=== PATIENT | female | born 1940 | race Caucasian/White ===

== ENCOUNTER 2019-08-20 16:15 | Inpatient (IN) | payer MEDICARE ==
[2019-08-20 17:11] LABS: ALT (SGPT) 9 U/L (8-55); AST (SGOT) 14 U/L (5-34); Albumin 3.9 g/dL (3.4-4.8); Alkaline Phosphatase 69 U/L (40-110); Anion Gap 11 mmol/L (10-20); BUN (Urea Nitrogen) 20 mg/dL (9.8-20.1); Bilirubin, Total 0.5 mg/dL (0.2-1.2); Calc. Creatinine Clearance 0 mL/min (70-130); Calcium 8.9 mg/dL (7.8-10.44); Carbon Dioxide 28 mmol/L (23-31); Chloride 104 mmol/L (98-107); Estimated GFR-MDRD 59; Globulin 3.3 g/dL (2.4-3.5); Glucose 83 mg/dL (83-110); Protein, Total 7.2 g/dL (6.0-8.3); Sodium 139 mmol/L (136-145)
[2019-08-20 18:09] LABS: #Eosinphils 0.4 thou/uL (0.0-0.7); #Lymphocytes 1.4 thou/uL (1.20-3.40); #Monocytes 0.7 thou/uL (0.11-0.59); #Neutrophils 4.9 thou/uL (1.40-6.50); %Basophils 0.4 % (0.0-1.0); %Eosinophils 5.3 % (0.0-10.0); %Lymphocytes 18.5 % (21.0-51.0); %Monocytes 9.1 % (0.0-10.0); %Neutrophils 66.8 % (42.0-75.0); Hemoglobin 6.6 g/dL (12.0-16.0); Mean Corpuscular HGB CONC 29.9 g/dL (32.0-36.0); Mean Corpuscular Hemoglobin 19.3 pg (27.0-31.0); Mean Corpuscular Volume 64.6 fL (78.0-98.0); Mean Platelet Volume 6.9 fL (7.4-10.4); Platelet Count 232 thou/uL (130-400); RBC Distribution Width 24.7 % (11.5-14.5); White Blood Cell (WBC) Count 7.4 thou/uL (4.8-10.8)
[2019-08-20 18:14] LABS: PTT 27.3 SEC (22.9-36.1); Prothrombin Time 13.7 SEC (12.0-14.7)
[2019-08-20 18:38] LABS: Anisocytosis MODERATE=16-30 cells (100X) (0-5/hpf); Elliptocytes SLIGHT = 2-5 cells (100X) (0-1/hpf); Hypochromia SLIGHT = 6-15 cells (100X) (0-5/hpf); MDiff Complete? YES; Microcytosis SLIGHT = 6-15 cells (100X) (0-5/hpf); Ovalocytes SLIGHT = 2-5 cells (100X) (0-1/hpf); Platelet Morphology Comment Appears Adequate; Poikilocytosis SLIGHT = 6-15 cells (100X) (0-5/hpf); Polychromasia SLIGHT = 2-3 cells (100X) (0-2/hpf); Reflex for Review?? YES; Schistocytes SLIGHT = 2-5 cells (100X) (0-1/hpf); Tear Drops SLIGHT = 2-5 cells (100X) (0-1/hpf)
[2019-08-20] MEDS ORDERED: Pantoprazole 80 MG, Admixture Fee 1 EACH in Sodium Chloride 0.9% 100 ML IVPB SCH (18:45)
[2019-08-20] MEDS ORDERED: Acetaminophen 650 MG Suppository PR PRN (19:48)
[2019-08-20] MEDS ORDERED: Acetaminophen 325 MG TAB PO PRN (19:48)
[2019-08-20] MEDS ORDERED: Ondansetron PF 4 MG/2 ML Vial IVP PRN (19:48)
[2019-08-20] MEDS ORDERED: Ondansetron ODT 4 MG TAB PO PRN (19:48)
[2019-08-20 19:50] LABS: Iron 15 ug/dL (50-170); Iron Binding Capacity, Total 443 mcg/dL (265-497)
[2019-08-20] MEDS ORDERED: Famotidine/PF 20 mg/2ml Vial SLOW IVP SCH (21:00)
[2019-08-20 23:04] VITALS: BMI 31.8
--- NOTE | 2019-08-21 00:26 | HP ---
TIME OF ASSESSMENT: 1800 REASON FOR ADMISSION: Severe anemia. HISTORY OF PRESENT ILLNESS: Ms. Hester is a very pleasant 78-year-old woman, who looks very well for her age and was prompted to come in by her primary care physician after undergoing routine laboratory studies as workup for cataract surgery. The patient apparently was noted to have a low hemoglobin of 5.5 and advised to go to the ER. She was initially seen at [facility] and underwent a blood transfusion with 1 unit of packed red blood cells. The patient states she has never had transfusion before in her life. On arrival here, laboratory studies were repeated and she was noted to have a hemoglobin of 6.6 and is now receiving a second unit. The patient states that she has been feeling fatigued for the last several months, approximately 5 to 6 months. She spoke to her primary care physician about this and says she was told to exercise more in order to improve her stamina. She states she tends to feel extremely tired with exertion and is usually able to walk well on her own, except with long distances, such as going grocery shopping, she uses a motorized cart. Denies feeling any lightheadedness or dizziness. No chest pain or shortness of breath. She has not experienced any black stools or bright red blood in her stools. No hematuria. No abdominal pain. No nausea, vomiting, or hematemesis. She has otherwise felt very well and without complaints. She has never undergone any endoscopic procedure. She recalls her hemoglobin being 14 in the last year. A baseline chest x-ray was done in the emergency department and showed cardiomegaly with bilateral vascular congestion. No confluent pneumonia. This was done at [facility], where she was initially seen. She had a slightly elevated BNP of 507.9. She was therefore treated with Lasix. Since arriving to the emergency department here, she has been given 80 mg of IV Protonix. PAST MEDICAL HISTORY: 1. Restless legs syndrome. 2. Hypothyroidism. 3. Hypertension. 4. Anxiety. PAST SURGICAL HISTORY: 1. Appendectomy. 2. Tubal ligation. FAMILY HISTORY: Family history of ovarian cancer in mom and small cell lung cancer in dad. SOCIAL HISTORY: Patient lives with her son. She is fully independent and mobilizes without any assistive devices. Denies any tobacco use, alcohol consumption, or illicit drug use. ALLERGIES: NO KNOWN DRUG ALLERGIES. CURRENT MEDICATIONS: 1. Atenolol. 2. Celexa. 3. Levothyroxine. 4. Furosemide. PHYSICAL EXAMINATION: GENERAL: Patient appears well developed, well nourished, is in no acute distress. She is resting comfortably on a stretcher. VITAL SIGNS: Temperature 99.2, pulse 68, respirations 18, blood pressure 148/70 , and O2 saturation 100% on room air. HEENT: Normocephalic and atraumatic. Pupils are equal, round, and reactive to light. Sclerae without icterus. Oropharynx is clear. NECK: Supple. LUNGS: Clear to auscultation bilaterally without wheezes, rales, or rhonchi. CARDIAC: Regular rate and rhythm without audible murmurs, rubs, or gallops. ABDOMEN: Soft, nontender, and nondistended. Normoactive bowel sounds present. EXTREMITIES: No lower leg swelling or edema. NEUROLOGIC: Alert and oriented x3. SKIN: Without rash or jaundice. INVESTIGATIONS: As mentioned above in HPI. IMPRESSION AND PLAN: Ms. Hester is a very pleasant 78-year-old woman, who has been referred due to severe symptomatic anemia of unspecified etiology. Patient has had significant fatigue for the last several months, but states that today she is not feeling any worse than she has been. She denies any chest pain. No lightheadedness or dizziness. No signs or symptoms of bleeding. She has never had a colonoscopy done. She is not on any blood thinners. Not known to have any history of iron-deficiency anemia and a year ago her hemoglobin was normal at 14. She has received one of two units of packed red blood cells. We will plan to give her an additional third unit as per discussion with Dr. Calvert. He also advised iron infusion. We have requested iron studies to be added to the initial blood tests done prior to the transfusions. Per Dr. Calvert, patient would benefit from GI workup, but this should be done as an outpatient. Further investigations as per Day Team. We will continue to check H and H q.6 hours and continue Protonix 40 mg twice daily. Patient is feeling well at this time and without any complaints. We will resume home medications once verified. No evidence of overload at this present time and she was treated with Lasix 20 mg at [facility]. We will continue with her usual daily dose of Lasix. Code status, full. Surrogate decision maker is her son, Praveen Hester. Case discussed with Dr. Calvert who agrees upon care as described above. === ADDENDUM: patient seen/examined independently 78 year old female who was referred to ER for abnormal labs showing severe anemia with microcytosis. complains of progressive symptoms of fatigue and decreased exercise tolerance for months. denies melena. FOBT negative in ER. denies abdominal pain, PUD, or any other acute blood loss. reports hemoglobin 14 one year ago. review of EMR shows MCV normocytic 2 years ago. denies prior colonoscopy. denies changes in weight. plan: admit as observation await 3 units prbc transfusion. transfuse IV ferrlecit 125 mg. will attempt to obtain anemia profile from pre- transfusion blood draw. start empiric po PPI recommend patient obtain outpatient GI follow-up, who verbalizes understanding. Dr. Chaz Calvert, supervising hospitalist discussed with LEEANNE Job ID: [id number] MTDD
[2019-08-21] MEDS: Levothyroxine Sodium 75 MCG TAB PO SCH (05:24)
[2019-08-21 06:21] LABS: #Eosinphils 0.4 thou/uL (0.0-0.7); #Lymphocytes 1.4 thou/uL (1.20-3.40); #Monocytes 0.7 thou/uL (0.11-0.59); #Neutrophils 4.9 thou/uL (1.40-6.50); %Basophils 0.6 % (0.0-1.0); %Eosinophils 5.1 % (0.0-10.0); %Lymphocytes 19.3 % (21.0-51.0); %Monocytes 9.5 % (0.0-10.0); %Neutrophils 65.5 % (42.0-75.0); Hemoglobin 7.8 g/dL (12.0-16.0); Mean Corpuscular HGB CONC 31.2 g/dL (32.0-36.0); Mean Corpuscular Hemoglobin 20.8 pg (27.0-31.0); Mean Corpuscular Volume 66.5 fL (78.0-98.0); Mean Platelet Volume 7.8 fL (7.4-10.4); Platelet Count 181 thou/uL (130-400); Red Blood Cell (RBC) Count 3.78 mill/uL (4.20-5.40); White Blood Cell (WBC) Count 7.4 thou/uL (4.8-10.8)
[2019-08-21 06:25] LABS: Anion Gap 16 mmol/L (10-20); BUN (Urea Nitrogen) 19 mg/dL (9.8-20.1); Calc. Creatinine Clearance 67 mL/min (70-130); Calcium 8.6 mg/dL (7.8-10.44); Carbon Dioxide 21 mmol/L (23-31); Chloride 104 mmol/L (98-107); Estimated GFR-MDRD 65; Glucose 97 mg/dL (83-110); Potassium 4.6 mmol/L (3.5-5.1); Sodium 136 mmol/L (136-145)
[2019-08-21] MEDS: Furosemide 20 MG TAB PO SCH (08:44)
[2019-08-21] MEDS: Pantoprazole 40 MG VIAL IVP SCH ×2 (08:45→20:08)
[2019-08-21] MEDS ORDERED: Iron Sucrose Complex 200 MG in Sodium Chloride 0.9% 250 ML 250 ML IVPB SCH (10:30)
[2019-08-21] MEDS ORDERED: Iron, Sodium Ferric Gluconate 250 MG in Sodium Chloride 0.9% 100 ML IVPB SCH (10:45)
[2019-08-21] MEDS ORDERED: GoLYTELY 4,000 ml Bottle PO SCH ×2 (12:00→18:00)
--- NOTE | 2019-08-21 15:39 | CON ---
DATE OF CONSULTATION: CONSULTING PHYSICIAN: Lauren Condon MD. REASON FOR CONSULTATION: Iron-deficiency anemia. HISTORY OF PRESENT ILLNESS: Ms. Hester is an 78-year-old female, who presented to an outside emergency room in [place] as one of her physicians doing an evaluation prior to cataract surgery and found her to have a hemoglobin of 5.5. She was advised to go to the emergency room in [place]. There, she was transfused 1 unit of blood and transferred here. She notes that she has had no overt melena, hematochezia, or hematemesis. She takes Advil PM sometimes every once or twice a week. She has had not had any previous screening colonoscopy. She denies any hematochezia, hematemesis, or melena. She has become quite fatigued, not being able to do very much, and getting short of breath and having some dyspnea on exertion. She recently saw her wig maker secondary to edema in her legs. It is unclear what evaluation was done, but she states that she was found to have a little bit of cardiomegaly. Here, her hemoglobin after blood and some IV iron has come up to 7.8. On admission, it was 5.9 with an MCV of 61, platelet count of 305. Her previous hemoglobin at [facility] was 14.8 on 07/05/2017. The patient's comprehensive metabolic profile was normal. BNP was 507. Iron was 15 and ferritin was less than 2two. PAST MEDICAL HISTORY: 1. Hypertension. 2. Restless legs. 3. Hypothyroidism. 4. Anxiety. PAST SURGICAL HISTORY: 1. Appendectomy. 2. Tubal ligation. FAMILY HISTORY: Ovarian cancer. Her father had lung cancer, he is a smoker. SOCIAL HISTORY: She lives with her son. She is fully independent. ALLERGIES: NONE KNOWN. MEDICATIONS AT HOME: 1. Celexa. 2. Atenolol. 3. Levothyroxine. 4. Furosemide. PHYSICAL EXAMINATION: GENERAL: The patient is alert and oriented to person, place, and time. She is sitting up in the side of the bed. She is pale. VITAL SIGNS: Temperature is 98, pulse 81, and blood pressure is 132/81. LUNGS: Clear. HEART: Regular without murmurs. ABDOMEN: Soft and nontender with no palpable hepatosplenomegaly. EXTREMITIES: No clubbing, cyanosis, or edema. LABORATORY STUDIES: As per HPI. ASSESSMENT: Iron-deficiency anemia. She is not a Mediterranean. She does take some nonsteroidal anti-inflammatory drugs at times, but not a lot. She has not had any previous screening colonoscopies. This is most likely related to chronic gastrointestinal blood loss. RECOMMENDATIONS: In light of severeness of her anemia, I would recommend upper and lower endoscopies tomorrow morning to further delineate the cause and risks going forward. Risks, benefits, and possible complications of endoscopy including perforation, bleeding, reaction to medication, and aspiration were discussed with the patient and she wished to proceed. Job ID: [id number]
--- NOTE | 2019-08-21 17:24 | PDOC.HOSPP ---
- Subjective Encounter Date: 08/21/19 Encounter Time: 10:00 Subjective: Pt seen for followup re: symptomatic anemia. States she feels better today. - Objective Vital Signs & Weight: Vital Signs (12 hours) Temp Pulse Resp BP BP BP BP 08/21/19 16:39 97.2 F L 74 18 125/74 08/21/19 11:11 98.6 F 76 16 126/75 98/67 96/59 L 08/21/19 07:00 98.6 F 71 16 132/81 Pulse Ox 08/21/19 16:39 94 L 08/21/19 11:11 96 08/21/19 07:00 96 Weight Weight 174 lb 3.2 oz I&O: 08/20/19 08/21/19 08/22/19 06:59 06:59 06:59 Intake Total 500 Balance 500 Result Diagrams: 08/21/19 05:36 08/21/19 05:36 Additional Labs: Labs and MARs reviewed by ma Hospitalist ROS - Review of Systems Cardiovascular: denies: chest pain, palpitations, orthopnea, paroxysmal noc. dyspnea, edema, light headedness Gastrointestinal: denies: nausea, vomiting, abdominal pain, diarrhea, constipation, melena, hematochezia - Medication Medications: Active Medications Generic Name Dose Route Start Last Admin Trade Name Freq PRN Reason Stop Dose Admin Furosemide 20 mg 08/21/19 09:00 08/21/19 08:44 Lasix PO 20 mg DAILY TOMAS Administration Levothyroxine Sodium 75 mcg 08/21/19 06:00 08/21/19 05:24 Synthroid PO 75 mcg 0600 TOMAS Administration Pantoprazole Sodium 40 mg 08/21/19 09:00 08/21/19 08:45 Protonix IVP 40 mg Q12HR TOMAS Administration Polyethylene Glycol/Electrolytes 4,000 ml 08/21/19 18:00 08/21/19 16:24 Golytely PO 08/21/19 20:00 4,000 ml 1800 TOMAS Administration Sodium Chloride 10 ml 08/20/19 19:48 08/21/19 08:46 Flush - Normal Saline IVF 10 ml Q12HR PRN Administration Saline Flush - Exam General Appearance: NAD Eye: anicteric sclera ENT: moist mucosa Neck: supple Heart: RRR Respiratory: CTAB Gastrointestinal: soft, non-tender Extremities: no cyanosis Skin: no lesions Psychiatric: normal affect, normal behavior Hosp A/P (1) Symptomatic anemia Code(s): D64.9 - ANEMIA, UNSPECIFIED Status: Acute (2) HTN (hypertension) Code(s): I10 - ESSENTIAL (PRIMARY) HYPERTENSION Status: Chronic (3) RLS (restless legs syndrome) Status: Chronic (4) Hypothyroidism Code(s): E03.9 - HYPOTHYROIDISM, UNSPECIFIED Status: Chronic - Plan out of bed/ambulate Hemoglobin improved to 7.8 after pRBC transfusion. IV iron infusion for iron deficiency. EGD/colonoscopy tomorrow. Monitor vital signs, titrate antihypertensives as needed. Continue synthroid. TSH and free T4 were normal. Check Vit B12/folate levels tomorrow.
[2019-08-21] MEDS: Atenolol 50 MG TAB PO SCH (20:08)
[2019-08-21] MEDS: Citalopram 20 MG TAB PO SCH (20:08)
[2019-08-22] MEDS: Levothyroxine Sodium 75 MCG TAB PO SCH (05:17)
[2019-08-22 05:58] LABS: #Basophils 0.1 thou/uL (0.0-0.2); #Eosinphils 0.5 thou/uL (0.0-0.7); #Lymphocytes 1.6 thou/uL (1.20-3.40); #Monocytes 0.9 thou/uL (0.11-0.59); #Neutrophils 5.5 thou/uL (1.40-6.50); %Basophils 0.6 % (0.0-1.0); %Eosinophils 5.6 % (0.0-10.0); %Lymphocytes 18.8 % (21.0-51.0); %Monocytes 10.1 % (0.0-10.0); Hemoglobin 8.3 g/dL (12.0-16.0); Mean Corpuscular HGB CONC 29.7 g/dL (32.0-36.0); Mean Corpuscular Volume 67.2 fL (78.0-98.0); Mean Platelet Volume 8.1 fL (7.4-10.4); Platelet Count 268 thou/uL (130-400); RBC Distribution Width 26.4 % (11.5-14.5); Red Blood Cell (RBC) Count 4.13 mill/uL (4.20-5.40); White Blood Cell (WBC) Count 8.4 thou/uL (4.8-10.8)
[2019-08-22 06:17] LABS: Anion Gap 11 mmol/L (10-20); BUN (Urea Nitrogen) 14 mg/dL (9.8-20.1); Calc. Creatinine Clearance 58 mL/min (70-130); Calcium 9.1 mg/dL (7.8-10.44); Carbon Dioxide 31 mmol/L (23-31); Chloride 102 mmol/L (98-107); Estimated GFR-MDRD 56; Glucose 107 mg/dL (83-110); Potassium 3.7 mmol/L (3.5-5.1); Sodium 140 mmol/L (136-145)
[2019-08-22] MEDS: Pantoprazole 40 MG VIAL IVP SCH (08:02)
[2019-08-22] MEDS: Furosemide 20 MG TAB PO SCH (08:03)
[2019-08-22] MEDS ORDERED: Lidocaine 1% PF 5 ML VIAL ONE (10:34)
[2019-08-22] MEDS ORDERED: PROPOFOL 200 MG/20 ML VIAL ONE (10:34)
--- NOTE | 2019-08-22 16:31 | OP ---
DATE OF PROCEDURE: 08/22/2019 PROCEDURES PERFORMED: Esophagogastroduodenoscopy with biopsies and colonoscopy. PREOPERATIVE DIAGNOSIS: Iron deficiency anemia. DESCRIPTION OF PROCEDURE: Informed consent was obtained from the patient. She was sedated with total intravenous anesthesia. The bite block was placed and the endoscope was advanced easily to the second portion of the duodenum and retroflexion was performed in the stomach. The esophagus was normal. The GE junction was normal. The stomach had a 5 cm hiatal hernia without obvious erosions associated with this. The stomach had mild erythematous gastritis in the antrum. Biopsies were obtained to rule out H. pylori. Retroflexed views in the stomach were otherwise unremarkable. The pylorus and first and second portions of the duodenum were normal. Biopsies were taken from the second portion of the duodenum to rule out celiac disease. The patient was turned around. Rectal exam was performed and was normal. The colonoscope was advanced to the terminal ileum without difficulty. Mucosa of the terminal ileum was normal. The ileocecal valve and appendiceal orifice were clearly identified. The preparation quality was good. There was severe diverticulosis of the sigmoid and descending colon. The remainder of the colonic mucosa was normal. Retroflexed views in the rectum revealed [id number] internal hemorrhoids. IMPRESSION: 1. A 5 cm hiatal hernia. 2. Mild erythematous gastritis. Biopsies taken to rule out Helicobacter pylori. 3. Otherwise normal esophagogastroduodenoscopy. Duodenal biopsies were taken to rule out celiac disease. 4. Severe sigmoid and descending diverticulosis. 5. [id number] internal hemorrhoids. 6. Otherwise normal colonoscopy to the terminal ileum. RECOMMENDATIONS: 1. Await histopathology. 2. Follow trend of the hemoglobin. 3. Advance her diet. 4. Follow up with Dr. Segura. Next step will be capsule endoscopy to evaluate for small bowel source of GI bleeding. Job ID: [id number]
--- NOTE | 2019-08-22 18:18 | PDOC.HOSPP ---
- Subjective Encounter Date: 08/22/19 Encounter Time: 10:00 Subjective: Pt seen for followup re: symptomatic anemia. Feels well, no complaints today. - Objective Vital Signs & Weight: Vital Signs (12 hours) Temp Pulse Resp BP BP Pulse Ox 08/22/19 14:50 98.1 F 68 18 113/68 99 08/22/19 07:48 98.1 F 62 20 143/71 H 95 Weight Weight 174 lb 3.2 oz I&O: 08/21/19 08/22/19 08/23/19 06:59 06:59 06:59 Intake Total 500 3910 360 Balance 500 3910 360 Result Diagrams: 08/22/19 05:25 08/22/19 05:25 Additional Labs: Labs and MARs reviewed by oh Hospitalist ROS - Review of Systems Cardiovascular: denies: chest pain, palpitations, orthopnea, paroxysmal noc. dyspnea, edema, light headedness Gastrointestinal: denies: nausea, vomiting, abdominal pain, diarrhea, constipation, melena, hematochezia Skin: denies: rash, lesions - Medication Medications: Active Medications Generic Name Dose Route Start Last Admin Trade Name Freq PRN Reason Stop Dose Admin Atenolol 50 mg 08/21/19 21:00 08/21/19 20:08 Tenormin PO 50 mg HS TOMAS Administration Citalopram Hydrobromide 20 mg 08/21/19 21:00 08/21/19 20:08 Celexa PO 20 mg HS TOMAS Administration Furosemide 20 mg 08/21/19 09:00 08/22/19 08:03 Lasix PO Not Given DAILY TOMAS Levothyroxine Sodium 75 mcg 08/21/19 06:00 08/22/19 05:17 Synthroid PO 75 mcg 0600 TOMAS Administration Sodium Chloride 10 ml 08/20/19 19:48 08/22/19 08:03 Flush - Normal Saline IVF 10 ml Q12HR PRN Administration Saline Flush - Exam General Appearance: awake alert General - other findings: obese Eye: anicteric sclera ENT: moist mucosa Neck: supple, no JVD Heart: RRR, no rubs Respiratory: CTAB Gastrointestinal: soft, non-tender Neurological: no weakness Psychiatric: normal affect, normal behavior Hosp A/P (1) Symptomatic anemia Code(s): D64.9 - ANEMIA, UNSPECIFIED Status: Acute (2) HTN (hypertension) Code(s): I10 - ESSENTIAL (PRIMARY) HYPERTENSION Status: Chronic (3) RLS (restless legs syndrome) Status: Chronic (4) Hypothyroidism Code(s): E03.9 - HYPOTHYROIDISM, UNSPECIFIED Status: Chronic - Plan out of bed/ambulate Hemoglobin improved to 8.3 today. EGD/colonoscopy today. Monitor vital signs, titrate antihypertensives as needed. Continue synthroid. Start ferrous sulfate.
[2019-08-22] MEDS: Atenolol 50 MG TAB PO SCH (20:25)
[2019-08-22] MEDS: Citalopram 20 MG TAB PO SCH (20:26)
[2019-08-23 04:43] VITALS: TEMP 98.6
[2019-08-23] MEDS: Levothyroxine Sodium 75 MCG TAB PO SCH (05:18)
[2019-08-23 05:41] LABS: #Eosinphils 0.5 thou/uL (0.0-0.7); #Lymphocytes 1.2 thou/uL (1.20-3.40); #Monocytes 0.8 thou/uL (0.11-0.59); %Basophils 0.5 % (0.0-1.0); %Eosinophils 5.3 % (0.0-10.0); %Lymphocytes 13.9 % (21.0-51.0); %Monocytes 9.3 % (0.0-10.0); %Neutrophils 71.1 % (42.0-75.0); Hemoglobin 7.6 g/dL (12.0-16.0); Mean Corpuscular HGB CONC 29.9 g/dL (32.0-36.0); Mean Corpuscular Hemoglobin 20.2 pg (27.0-31.0); Mean Corpuscular Volume 67.4 fL (78.0-98.0); Platelet Count 215 thou/uL (130-400); RBC Distribution Width 27.2 % (11.5-14.5); Red Blood Cell (RBC) Count 3.76 mill/uL (4.20-5.40); White Blood Cell (WBC) Count 8.5 thou/uL (4.8-10.8)
[2019-08-23 05:46] LABS: Anion Gap 10 mmol/L (10-20); BUN (Urea Nitrogen) 14 mg/dL (9.8-20.1); Calc. Creatinine Clearance 60 mL/min (70-130); Calcium 8.6 mg/dL (7.8-10.44); Carbon Dioxide 28 mmol/L (23-31); Chloride 105 mmol/L (98-107); Estimated GFR-MDRD 57; Glucose 98 mg/dL (83-110); Potassium 3.7 mmol/L (3.5-5.1); Sodium 139 mmol/L (136-145)
[2019-08-23 07:59] VITALS: BP 136/79
[2019-08-23] MEDS ORDERED: Ferrous Sulfate 325 MG TAB PO SCH (08:00)
[2019-08-23] MEDS: Furosemide 20 MG TAB PO SCH (08:02)
--- NOTE | 2019-08-24 05:47 | PQF ---
[employer] Quilting Machine Operator Crystal Reports Winform ViewerMADHU RECINOS MARCELINA BRINK [id number] [facility] [id number] CLINICAL DOCUMENTATION CLARIFICATION FORM: POST DISCHARGE Addendum to original discharge summary date: ____ Late entry note date: __ DATE: 08/24/2019 ATTN:MARCELINA BRINK Please exercise your independent, professional judgment in responding to the clarification form. Clinical indicators are provided on the bottom of this form for your review Please check appropriate box(s): [ ] Anemia due to Internal Hemorrhoids [ ] Anemia due to Gastritis [ ] Anemia due Diverticulosis [ ] Anemia due NSAID drug [x ] Anemia due to Unknown etiology [ ] Other diagnosis [ ] Unable to determine In addition, please specify: Present on Admission (POA): [ x ] Yes [ ] No [ ] Unable to determine For continuity of documentation, please document condition throughout progress notes and discharge summary. Thank You. CLINICAL INDICATORS - SIGNS / SYMPTOMS / LABS HGB 6.6 on 08/20 and 8.3 on 08/22 - Documented in Laboratory HCT on 22.0 on 08/20 and 25.4 on 08/23 - Documented in Laboratory She does take some NSAID but not a lot - Documented in Consult note on 08/21 by Epi Akhtar This is most likely Chronic GIB - Documented in Consult note on 08/21 by Epi Akhtar Iron Deficiency anemia - Documented in OP note RISK FACTORS Severe sigmoid diverticulosis - Documented in OP note Internal Hemorrhoids - Documented in OP note Mild Erythematous gastritis - Documented in OP note TREATMENTS: Blood transfusion EGD with Biopsy and Colonoscopy Ferrous sulfate - Medication report [employer] Quilting Machine Operator Crystal Reports Winform Viewer(This form is maintained as a part of the permanent medical record) 2014 [employer]. All Rights Reserved Renan [email or web address] [not provided] MTDD
--- NOTE | 2019-08-24 09:22 | DIS ---
DATE OF ADMISSION: 08/22/2019 DATE OF DISCHARGE: 08/23/2019 PRIMARY CARE PROVIDER: Cindi Bishop MD. DISCHARGE DIAGNOSES: 1. Symptomatic anemia. 2. Iron deficiency. CONDITION OF PATIENT ON THE DAY OF DISCHARGE: Stable. I assessed Ms. Hester on the day of discharge. She denies any chest pain or shortness of breath. Vital signs are stable. S1 and S2 are heard, regular. Lungs are clear to auscultation bilaterally. CONSULTATIONS DURING THIS HOSPITALIZATION: Gastroenterology, Dr. Segura. DISCHARGE MEDICATIONS: 1. Atenolol 50 mg at bedtime. 2. Celexa 20 mg at bedtime. 3. Lasix 20 mg daily. 4. Synthroid 75 mcg daily. 5. Ferrous sulfate 325 mg daily. 6. Protonix 40 mg daily. 7. MiraLAX 17 g daily. HOSPITAL COURSE: Ms. Hester is a pleasant 78-year-old lady, who was admitted to [facility] on 08/20/2019, for symptomatic anemia. She received packed RBC transfusion. She also received iron infusion. She was seen by Gastroenterology Service. Her iron level was low at 15. TIBC was towards the higher end of normal at 443. Ferritin was less than 2. Vitamin B12 and folate levels were normal. On 08/22/2019, she underwent bidirectional scope studies. She was found to have a 5 cm hiatal hernia, mild erythematous gastritis, biopsies taken to rule out H pylori. Duodenal biopsies were also taken to rule out celiac disease. She had severe sigmoid and descending diverticulosis, moderate to large internal hemorrhoids. She is advised to follow up with Gastroenterology Service. Next step may be capsule endoscopy to evaluate for small bowel source of GI bleeding. She was initially transferred to [facility] after presenting at [facility]. There, she had a chest x-ray that showed cardiomegaly with bilateral vascular congestion. She was treated with furosemide. Pharmacy at [facility] queried whether the patient has an active diagnosis of congestive heart failure, in which case, they recommended substituting either carvedilol or Toprol-XL for atenolol. The patient will follow up with her paper pattern folder, Dr. Truong to clarify the issue. On the day of discharge, she has normal chem-7, normal white count, hemoglobin 7.6, and normal platelet count. Many thanks for allowing me to participate in your patient's care. Please feel free to contact me with any questions or concerns. DIET: Heart healthy. ACTIVITY: Ad jay. DISCHARGE DESTINATION: Home. TIME SPENT: Total amount of time spent coordinating this discharge: 20 minutes. Job ID: [id number] MTDD
== END 2019-08-23 11:48 | disposition home or self-care (01) | DRG 812 ==
LOC: ERS 16:15 → T4-A 22:01 → OBSVTOIN 08-22 09:34
PROVIDERS: ADMIT Internal Medicine; ATTEND Internal Medicine
PROC: 30233N1 Transfusion of Nonautologous Red Blood Cells into Peripheral Vein, Percutaneous Approach (ICD-10-PCS; principal; 2019-08-23)
PROC: 0DB98ZX Excision of Duodenum, Via Natural or Artificial Opening Endoscopic, Diagnostic (ICD-10-PCS; 2019-08-23)
DX: D50.9 Iron deficiency anemia, unspecified (principal); E03.9 Hypothyroidism, unspecified; I10 Essential (primary) hypertension; F41.9 Anxiety disorder, unspecified; G25.81 Restless legs syndrome; K44.9 Diaphragmatic hernia without obstruction or gangrene; K57.90 Diverticulosis of intestine, part unspecified, without perforation or abscess without bleeding; K64.8 Other hemorrhoids; K29.70 Gastritis, unspecified, without bleeding; Z90.49 Acquired absence of other specified parts of digestive tract; Z98.51 Tubal ligation status; Z79.899 Other long term (current) drug therapy
CPT/HCPCS: 36415; 80048; 82607; 82728; 82746; 83540; 83550; 85025; 86850; 86900; 86901; 88305; 88312; 88342; 96365; 96366; C9113; J2001; J2704; J2916; J3490; P9016

== ENCOUNTER 2021-10-24 10:41 | Inpatient (IN) | payer OTHER, MEDICARE ==
[2021-10-24 11:32] LABS: Mean Corpuscular HGB CONC 31.1 g/dL (32.0-36.0); Mean Corpuscular Hemoglobin 28.1 pg (27.0-31.0); Mean Corpuscular Volume 90.2 fL (78.0-98.0); Mean Platelet Volume 9.2 fL (7.4-10.4); Platelet Count 204 thou/uL (130-400); RBC Distribution Width 24.7 % (11.5-14.5); Red Blood Cell (RBC) Count 4.63 mill/uL (4.20-5.40); White Blood Cell (WBC) Count 10.2 thou/uL (4.8-10.8)
[2021-10-24 11:33] LABS: #Basophils 0.1 thou/uL (0.0-0.2); #Eosinphils 0.3 thou/uL (0.0-0.7); #Monocytes 0.9 thou/uL (0.11-0.59); #Neutrophils 7.9 thou/uL (1.40-6.50); %Basophils 0.9 % (0.0-1.0); %Eosinophils 2.7 % (0.0-10.0); %Lymphocytes 10.2 % (21.0-51.0); %Monocytes 9.2 % (0.0-10.0)
[2021-10-24 11:48] LABS: ALT (SGPT) 17 U/L (8-55); AST (SGOT) 30 U/L (5-34); Albumin 3.6 g/dL (3.4-4.8); Alkaline Phosphatase 54 U/L (40-110); Anion Gap 17 mmol/L (10-20); BUN (Urea Nitrogen) 29 mg/dL (9.8-20.1); Bilirubin, Total 0.9 mg/dL (0.2-1.2); Calc. Creatinine Clearance 0 mL/min (70-130); Calcium 9.5 mg/dL (7.8-10.44); Carbon Dioxide 24 mmol/L (23-31); Chloride 105 mmol/L (98-107); Globulin 3.2 g/dL (2.4-3.5); Glucose 93 mg/dL (83-110); Potassium 3.6 mmol/L (3.5-5.1); Protein, Total 6.8 g/dL (5.8-8.1); Sodium 142 mmol/L (136-145)
[2021-10-24 11:55] LABS: Anisocytosis MODERATE=16-30 cells (100X) (0-5/hpf); MDiff Complete? YES; Ovalocytes SLIGHT = 2-5 cells (100X) (0-1/hpf); Platelet Morphology Comment Appears Adequate; Polychromasia SLIGHT = 2-3 cells (100X) (0-2/hpf)
[2021-10-24] MEDS ORDERED: Morphine 4 MG/ML VIAL ONE (11:58)
[2021-10-24] MEDS ORDERED: hydrALAZINE 20 MG/ML VIAL SLOW IVP PRN (13:45)
[2021-10-24] MEDS ORDERED: Promethazine HCl 25 MG/ML VIAL IM PRN (13:45)
[2021-10-24] MEDS ORDERED: Ondansetron PF 4 MG/2 ML Vial IVP PRN (13:45)
[2021-10-24] MEDS ORDERED: traMADol HCl 50 MG TAB PO PRN (13:49)
[2021-10-24] MEDS ORDERED: Morphine 4 MG/ML VIAL SLOW IVP PRN (13:51)
[2021-10-24] MEDS ORDERED: Ibuprofen 200 MG TAB PO PRN (14:16)
[2021-10-24 14:44] LABS: Bilirubin Negative (Negative); Blood, Urine 2+ (Negative); Clarity Turbid (Clear); Glucose, Urine (Dipstick) Normal (Negative); Ketone, Urine 40 mg/dL (Negative); Leukocyte 25 Leu/uL (Negative); Nitrite Negative (Negative); Protein, Urine (Dipstick) 20 mg/dL (Neg-Trace); RBC/HPF 21-50 HPF (0-3); Specific Gravity, Urine 1.032 (1.002-1.036); pH, Urine 5.5 (5.0-9.0)
[2021-10-24 14:45] LABS: Bacteria/HPF 3+ HPF (None Seen)
[2021-10-24] MEDS ORDERED: Potassium Chloride 20 MEQ in Lactated Ringer's 1,000 ML IV SCH (18:15)
[2021-10-24 18:28] VITALS: BMI 29.2
[2021-10-24] MEDS: Acetaminophen 500 MG TAB PO SCH ×2 (19:22→20:39)
[2021-10-24] MEDS: traMADol HCl 50 MG TAB PO SCH (19:23)
[2021-10-24 20:03] LABS: SARS-CoV-2 NAA Rapid Test Not Detected (NotDetected)
[2021-10-24] MEDS: Famotidine/PF 20 mg/2ml Vial SLOW IVP SCH (20:37)
[2021-10-24] MEDS: Citalopram 20 MG TAB PO SCH (20:39)
[2021-10-24] MEDS: Senokot S 8.6-50 MG TAB PO SCH (20:39)
[2021-10-24] MEDS: Atenolol 50 MG TAB PO SCH (20:50)
[2021-10-25] MEDS: traMADol HCl 50 MG TAB PO SCH ×4 (00:01→18:36)
[2021-10-25] MEDS: Acetaminophen 500 MG TAB PO SCH ×4 (03:00→21:00)
[2021-10-25 05:19] LABS: INR-International Normal Ratio 1.1; PTT 31.4 sec (22.9-36.1); Prothrombin Time 14.2 sec (12.0-14.7)
[2021-10-25 05:22] LABS: Anion Gap 13 mmol/L (10-20); BUN (Urea Nitrogen) 38 mg/dL (9.8-20.1); Calc. Creatinine Clearance 49 mL/min (70-130); Calcium 8.6 mg/dL (7.8-10.44); Carbon Dioxide 25 mmol/L (23-31); Chloride 103 mmol/L (98-107); Glucose 69 mg/dL (83-110); Magnesium 2.3 mg/dL (1.6-2.6); Potassium 4.4 mmol/L (3.5-5.1); Sodium 137 mmol/L (136-145)
[2021-10-25 06:14] LABS: #Basophils 0.1 thou/uL (0.0-0.2); #Eosinphils 0.4 thou/uL (0.0-0.7); #Lymphocytes 1.2 thou/uL (1.20-3.40); #Monocytes 0.8 thou/uL (0.11-0.59); #Neutrophils 5.6 thou/uL (1.40-6.50); %Basophils 1.2 % (0.0-1.0); %Eosinophils 4.7 % (0.0-10.0); %Lymphocytes 14.4 % (21.0-51.0); %Monocytes 9.8 % (0.0-10.0); Band 1 % (5-11); Eosinophils 2 % (0-10); Hemoglobin 11.6 g/dL (12.0-16.0); Lymphocytes 17 % (21-51); MDiff Complete? YES; Mean Corpuscular HGB CONC 31.7 g/dL (32.0-36.0); Mean Corpuscular Hemoglobin 28.9 pg (27.0-31.0); Mean Corpuscular Volume 91.3 fL (78.0-98.0); Mean Platelet Volume 9.4 fL (7.4-10.4); Monocytes 7 % (0-10); Neutrophil 73 % (42-75); Platelet Count 171 thou/uL (130-400); Platelet Morphology Comment Appears Adequate; RBC Distribution Width 24.5 % (11.5-14.5); RBC Morphology Normal; Red Blood Cell (RBC) Count 4.01 mill/uL (4.20-5.40)
[2021-10-25] MEDS: Levothyroxine Sodium 75 MCG TAB PO SCH (06:23)
[2021-10-25 06:58] LABS: CK (CPK) 228 U/L (29-168); Phosphorus 4.7 mg/dL (2.3-4.7)
[2021-10-25] MEDS ORDERED: Fentanyl 250 MCG/5 ML VIAL ONE ×2 (07:04→09:28)
[2021-10-25] MEDS ORDERED: Bupivacaine HCl 0.5%/Epinephrine 1:200,000/PF 30 ml Vial ONE (07:45)
[2021-10-25] MEDS ORDERED: Lidocaine 1% PF 5 ML VIAL ONE (07:45)
[2021-10-25] MEDS ORDERED: PROPOFOL 200 MG/20 ML VIAL ONE (07:45)
[2021-10-25] MEDS ORDERED: Rocuronium Bromide 10 MG/ML (10ML VIAL) ONE (07:45)
[2021-10-25] MEDS ORDERED: ceFAZolin 2 GM/DEX 5% 100 ML BAG ONE ×2 (08:02)
[2021-10-25] MEDS ORDERED: SUGAMMADEX SODIUM 200 MG/2 ML VIAL ONE (08:54)
[2021-10-25] MEDS ORDERED: Acetaminophen 325 MG TAB PO PRN (09:03)
[2021-10-25] MEDS ORDERED: HYDROcodone/Acetaminophen 5/325 mg Tablet PO PRN ×2 (09:05)
[2021-10-25] MEDS ORDERED: TETANUS AND DIPHTHERIA TOX/PF 0.5 ML DISP.SYRIN IM SCH (09:15)
[2021-10-25] MEDS ORDERED: Communication Order-Pharmacy FS PRN (09:15)
[2021-10-25] MEDS: Polyethylene Glycol 3350 17 GM Packet PO SCH (11:19)
[2021-10-25] MEDS: Folic Acid 1 MG TAB PO SCH (11:19)
[2021-10-25] MEDS: Senokot S 8.6-50 MG TAB PO SCH ×2 (11:21→21:00)
[2021-10-25] MEDS: Ferrous Sulfate 325 MG TAB PO SCH (11:21)
[2021-10-25] MEDS: Famotidine/PF 20 mg/2ml Vial SLOW IVP SCH (11:22)
[2021-10-25] MEDS ORDERED: hydrALAZINE 25 MG TAB PO SCH (15:00)
[2021-10-25] MEDS: hydrALAZINE 25 MG TAB PO SCH ×2 (15:03→21:03)
[2021-10-25] MEDS ORDERED: CEFAZOLIN 2 GM, Admixture Fee 1 EACH in Sodium Chloride 0.9% 100 ML IVPB SCH (16:00)
[2021-10-25] MEDS: Citalopram 20 MG TAB PO SCH (21:00)
[2021-10-25] MEDS: Doxycycline 100 MG CAP PO SCH (21:00)
[2021-10-25] MEDS ORDERED: Transdermal Patch Removal TOP SCH (21:00)
[2021-10-25] MEDS: Aspirin 81 mg Enteric Coated Tablet PO SCH (21:00)
[2021-10-25] MEDS: Atenolol 50 MG TAB PO SCH (21:03)
[2021-10-26] MEDS: traMADol HCl 50 MG TAB PO SCH ×4 (00:03→18:30)
[2021-10-26] MEDS: Acetaminophen 500 MG TAB PO SCH ×4 (02:25→20:53)
[2021-10-26] MEDS: Levothyroxine Sodium 75 MCG TAB PO SCH (05:27)
[2021-10-26 05:51] LABS: Anion Gap 12 mmol/L (10-20); BUN (Urea Nitrogen) 28 mg/dL (9.8-20.1); Calc. Creatinine Clearance 59 mL/min (70-130); Calcium 8.2 mg/dL (7.8-10.44); Carbon Dioxide 26 mmol/L (23-31); Chloride 104 mmol/L (98-107); Glucose 99 mg/dL (83-110); Magnesium 2.1 mg/dL (1.6-2.6); Phosphorus 3.1 mg/dL (2.3-4.7); Potassium 3.9 mmol/L (3.5-5.1); Sodium 138 mmol/L (136-145)
[2021-10-26 06:13] LABS: Hemoglobin 10.7 g/dL (12.0-16.0); Mean Corpuscular HGB CONC 30.4 g/dL (32.0-36.0); Mean Corpuscular Hemoglobin 28.5 pg (27.0-31.0); Mean Corpuscular Volume 93.6 fL (78.0-98.0); Mean Platelet Volume 9.6 fL (7.4-10.4); Platelet Count 158 thou/uL (130-400); RBC Distribution Width 24.3 % (11.5-14.5); Red Blood Cell (RBC) Count 3.76 mill/uL (4.20-5.40); White Blood Cell (WBC) Count 8.4 thou/uL (4.8-10.8)
[2021-10-26 06:14] LABS: #Eosinphils 0.2 thou/uL (0.0-0.7); #Lymphocytes 1.1 thou/uL (1.20-3.40); #Monocytes 0.8 thou/uL (0.11-0.59); #Neutrophils 6.3 thou/uL (1.40-6.50); %Basophils 0.2 % (0.0-1.0); %Eosinophils 2.4 % (0.0-10.0); %Lymphocytes 12.6 % (21.0-51.0); %Neutrophils 74.8 % (42.0-75.0); Anisocytosis SLIGHT = 6-15 cells (100X) (0-5/hpf); MDiff Complete? YES
[2021-10-26] MEDS ORDERED: Polyethylene Glycol 3350 17 GM Packet PO SCH (09:00)
[2021-10-26] MEDS ORDERED: Aspirin 81 mg Enteric Coated Tablet PO SCH (09:00)
[2021-10-26] MEDS: Polyethylene Glycol 3350 17 GM Packet PO SCH (09:03)
[2021-10-26] MEDS: Furosemide 20 MG TAB PO SCH (09:04)
[2021-10-26] MEDS: Aspirin 81 mg Enteric Coated Tablet PO SCH ×2 (09:04→20:53)
[2021-10-26] MEDS: Ferrous Sulfate 325 MG TAB PO SCH (09:04)
[2021-10-26] MEDS: Folic Acid 1 MG TAB PO SCH (09:04)
[2021-10-26] MEDS: Senokot S 8.6-50 MG TAB PO SCH (09:04)
[2021-10-26] MEDS: hydrALAZINE 25 MG TAB PO SCH ×2 (09:04→15:40)
[2021-10-26] MEDS: Docusate 100 MG CAP PO SCH ×2 (09:43→20:53)
[2021-10-26] MEDS: Doxycycline 100 MG CAP PO SCH ×2 (09:43→20:52)
[2021-10-26] MEDS: Senokot 8.6 MG TAB PO SCH ×2 (09:43→20:52)
[2021-10-26] MEDS ORDERED: traMADol HCl 50 MG TAB PO PRN (13:36)
[2021-10-26] MEDS: Ibuprofen 600 MG TAB PO SCH (18:30)
[2021-10-26] MEDS: Citalopram 20 MG TAB PO SCH (20:52)
[2021-10-26] MEDS: Gabapentin 300 MG CAP PO SCH (20:52)
[2021-10-26] MEDS: Atenolol 50 MG TAB PO SCH (21:35)
[2021-10-27] MEDS: traMADol HCl 50 MG TAB PO SCH ×4 (00:01→18:16)
[2021-10-27] MEDS: Acetaminophen 500 MG TAB PO SCH ×4 (04:28→21:18)
[2021-10-27] MEDS: Levothyroxine Sodium 75 MCG TAB PO SCH (05:47)
[2021-10-27] MEDS: Ibuprofen 600 MG TAB PO SCH ×4 (05:47→18:16)
[2021-10-27] MEDS: Senokot 8.6 MG TAB PO SCH ×2 (08:45→21:17)
[2021-10-27] MEDS: Gabapentin 300 MG CAP PO SCH ×2 (08:46→21:17)
[2021-10-27] MEDS: Furosemide 20 MG TAB PO SCH (08:46)
[2021-10-27] MEDS: Folic Acid 1 MG TAB PO SCH (08:46)
[2021-10-27] MEDS: Doxycycline 100 MG CAP PO SCH (08:46)
[2021-10-27] MEDS: Saccharomyces boulardii 250 MG CAP PO SCH (08:46)
[2021-10-27] MEDS: Aspirin 81 mg Enteric Coated Tablet PO SCH ×2 (08:49→21:16)
[2021-10-27] MEDS: Ferrous Sulfate 325 MG TAB PO SCH (08:49)
[2021-10-27] MEDS: Docusate 100 MG CAP PO SCH ×2 (08:50→21:16)
[2021-10-27] MEDS: Polyethylene Glycol 3350 17 GM Packet PO SCH (12:32)
[2021-10-27] MEDS: Atenolol 50 MG TAB PO SCH (21:16)
[2021-10-27] MEDS: Citalopram 20 MG TAB PO SCH (21:18)
[2021-10-27] MEDS: Sulfameth/Trimethoprim DS 800-160mg TAB PO SCH (21:19)
[2021-10-28] MEDS: traMADol HCl 50 MG TAB PO SCH ×4 (01:12→17:10)
[2021-10-28] MEDS: Ibuprofen 600 MG TAB PO SCH ×4 (01:13→17:11)
[2021-10-28] MEDS: Acetaminophen 500 MG TAB PO SCH ×3 (03:12→17:11)
[2021-10-28] MEDS: Levothyroxine Sodium 75 MCG TAB PO SCH (06:36)
[2021-10-28] MEDS: Gabapentin 300 MG CAP PO SCH (08:28)
[2021-10-28] MEDS: Aspirin 81 mg Enteric Coated Tablet PO SCH (08:29)
[2021-10-28] MEDS: Saccharomyces boulardii 250 MG CAP PO SCH (08:29)
[2021-10-28] MEDS: Docusate 100 MG CAP PO SCH (08:29)
[2021-10-28] MEDS: Ferrous Sulfate 325 MG TAB PO SCH (08:29)
[2021-10-28] MEDS: Furosemide 20 MG TAB PO SCH (08:29)
[2021-10-28] MEDS: Polyethylene Glycol 3350 17 GM Packet PO SCH (08:29)
[2021-10-28] MEDS: Senokot 8.6 MG TAB PO SCH (08:29)
[2021-10-28] MEDS: Folic Acid 1 MG TAB PO SCH (08:30)
[2021-10-28] MEDS: Sulfameth/Trimethoprim DS 800-160mg TAB PO SCH (08:30)
[2021-10-28 16:09] VITALS: BP 133/85; TEMP 97.8
== END 2021-10-28 20:00 | DRG 481 ==
LOC: ERS 10:41 → SURG B 13:25
PROVIDERS: ADMIT Surgery; ATTEND Surgery
PROC: 0QH734Z Insertion of Internal Fixation Device into Left Upper Femur, Percutaneous Approach (ICD-10-PCS; principal; 2021-10-25)
DX: S72.092A Other fracture of head and neck of left femur, initial encounter for closed fracture (principal); N39.0 Urinary tract infection, site not specified; Z20.822 Contact with and (suspected) exposure to COVID-19; F41.9 Anxiety disorder, unspecified; G25.81 Restless legs syndrome; E03.9 Hypothyroidism, unspecified; D50.9 Iron deficiency anemia, unspecified; I10 Essential (primary) hypertension; F17.210 Nicotine dependence, cigarettes, uncomplicated; I48.91 Unspecified atrial fibrillation; M19.90 Unspecified osteoarthritis, unspecified site; G89.29 Other chronic pain; M54.50 Low back pain, unspecified; M79.7 Fibromyalgia; M25.562 Pain in left knee; W01.0XXA Fall on same level from slipping, tripping and stumbling without subsequent striking against object, initial encounter; Y92.008 Other place in unspecified non-institutional (private) residence as the place of occurrence of the external cause; Z87.19 Personal history of other diseases of the digestive system; Z90.49 Acquired absence of other specified parts of digestive tract; Z98.51 Tubal ligation status; Z87.11 Personal history of peptic ulcer disease; Z86.79 Personal history of other diseases of the circulatory system; Z79.899 Other long term (current) drug therapy; Z79.890 Hormone replacement therapy
CPT/HCPCS: 36415; 51702; 71045; 72131; 72170; 72192; 76000; 80048; 80053; 81003; 81015; 82550; 83605; 83735; 84100; 85025; 85610; 85730; 86850; 86900; 86901; 87077; 87086; 87186; 96374; C1713; C1769; G0390; J2270; J2704; J3010; J3480; J7120; S0028; U0002

== ENCOUNTER 2021-11-04 10:40 | Inpatient (IN) | payer MEDICARE ==
[2021-11-03 13:35] VITALS: BMI 30.6
[2021-11-04] MEDS ORDERED: Fentanyl 250 MCG/5 ML VIAL ONE ×3 (11:31→14:50)
[2021-11-04 11:36] LABS: Anion Gap 12 mmol/L (10-20); BUN (Urea Nitrogen) 15 mg/dL (9.8-20.1); Calc. Creatinine Clearance 61 mL/min (70-130); Calcium 9.6 mg/dL (7.8-10.44); Carbon Dioxide 33 mmol/L (23-31); Chloride 100 mmol/L (98-107); Glucose 91 mg/dL (83-110); Potassium 4.8 mmol/L (3.5-5.1); Sodium 140 mmol/L (136-145)
[2021-11-04 11:41] LABS: Prothrombin Time 13.7 sec (12.0-14.7)
[2021-11-04 11:51] LABS: Hemoglobin 12.1 g/dL (12.0-16.0); Mean Corpuscular HGB CONC 32.6 g/dL (32.0-36.0); Mean Corpuscular Volume 95.1 fL (78.0-98.0); Mean Platelet Volume 8.8 fL (7.4-10.4); Platelet Count 239 thou/uL (130-400); RBC Distribution Width 24.4 % (11.5-14.5); Red Blood Cell (RBC) Count 3.91 mill/uL (4.20-5.40); White Blood Cell (WBC) Count 8.2 thou/uL (4.8-10.8)
[2021-11-04] MEDS ORDERED: PROPOFOL 200 MG/20 ML VIAL ONE (13:44)
[2021-11-04] MEDS ORDERED: Metoclopramide HCl 10 MG/2 ML VIAL ONE (13:44)
[2021-11-04] MEDS ORDERED: Ketorolac Tromethamine 30 MG/ML VIAL ONE (13:44)
[2021-11-04] MEDS ORDERED: Ondansetron PF 4 MG/2 ML Vial ONE (13:44)
[2021-11-04] MEDS ORDERED: Rocuronium Bromide 10 MG/ML (10ML VIAL) ONE (13:44)
[2021-11-04] MEDS ORDERED: Lidocaine 1% PF 5 ML VIAL ONE (13:44)
[2021-11-04] MEDS ORDERED: Glycopyrrolate 0.2 MG/ML 5 ML SYRINGE ONE (13:44)
[2021-11-04] MEDS ORDERED: Tranexamic Acid 1,000 MG/10 ML VIAL ONE (13:59)
[2021-11-04] MEDS ORDERED: Sodium Chloride 0.9% 100 ML ONE (13:59)
[2021-11-04] MEDS ORDERED: SUGAMMADEX SODIUM 200 MG/2 ML VIAL ONE (14:05)
[2021-11-04] MEDS ORDERED: Bupivacaine PF 0.5% 30 ML VIAL ONE (14:29)
[2021-11-04] MEDS ORDERED: EPINEPHrine 1 MG/ML AMP ONE (14:29)
[2021-11-04] MEDS ORDERED: HYDROcodone/Acetaminophen 10/325 mg Tablet PO PRN (14:50)
[2021-11-04] MEDS ORDERED: Ondansetron PF 4 MG/2 ML Vial IVP PRN (14:50)
[2021-11-04] MEDS ORDERED: Morphine 4 MG/ML VIAL SLOW IVP PRN ×2 (14:50)
[2021-11-04] MEDS ORDERED: Acetaminophen 325 MG TAB PO PRN (14:54)
[2021-11-04] MEDS ORDERED: cloNIDine 0.1 MG TAB PO PRN (14:54)
[2021-11-04] MEDS ORDERED: tiZANidine HCl 4 MG TAB PO PRN (14:54)
[2021-11-04] MEDS ORDERED: Loperamide HCl 2 MG CAP PO PRN (14:54)
[2021-11-04] MEDS ORDERED: traMADol HCl 50 MG TAB PO PRN (14:54)
[2021-11-04] MEDS ORDERED: Milk Of Magnesia 30 ML UDCUP PO PRN (14:54)
[2021-11-04] MEDS ORDERED: ABX FS SCH (15:00)
[2021-11-04] MEDS ORDERED: [UNRECOGNIZED DRUG - OTHER] FS SCH (15:00)
[2021-11-04] MEDS ORDERED: TETANUS AND DIPHTHERIA TOX/PF 0.5 ML DISP.SYRIN IM SCH (15:00)
[2021-11-04] MEDS ORDERED: Calcium Carbonate 500 MG TAB PO PRN (16:46)
[2021-11-04] MEDS: hydrALAZINE 25 MG TAB PO SCH ×3 (18:07→20:49)
[2021-11-04] MEDS: Ibuprofen 200 MG TAB PO SCH ×2 (18:15→20:50)
[2021-11-04] MEDS: traMADol HCl 50 MG TAB PO SCH (18:15)
[2021-11-04] MEDS: CEFAZOLIN 2 GM, IV Admixture Fee-Chemo 1 UNITS in Sodium Chloride 0.9% 100 ML IVPB SCH (19:23)
[2021-11-04] MEDS: Aspirin 81 mg Enteric Coated Tablet PO SCH (20:46)
[2021-11-04] MEDS: Citalopram 20 MG TAB PO SCH (20:47)
[2021-11-04] MEDS: Docusate 100 MG CAP PO SCH (20:49)
[2021-11-04] MEDS: Senokot 8.6 MG TAB PO SCH (20:49)
[2021-11-04] MEDS: Gabapentin 300 MG CAP PO SCH (20:50)
[2021-11-05] MEDS: CEFAZOLIN 2 GM, IV Admixture Fee-Chemo 1 UNITS in Sodium Chloride 0.9% 100 ML IVPB SCH ×3 (00:19→16:29)
[2021-11-05] MEDS: traMADol HCl 50 MG TAB PO SCH ×4 (00:19→17:27)
[2021-11-05] MEDS: Ibuprofen 200 MG TAB PO SCH ×2 (02:48→08:19)
[2021-11-05 05:16] LABS: #Basophils 0.1 thou/uL (0.0-0.2); #Eosinphils 0.4 thou/uL (0.0-0.7); #Lymphocytes 0.8 thou/uL (1.20-3.40); #Monocytes 0.6 thou/uL (0.11-0.59); #Neutrophils 5.6 thou/uL (1.40-6.50); %Basophils 0.8 % (0.0-1.0); %Eosinophils 5.8 % (0.0-10.0); %Lymphocytes 11.1 % (21.0-51.0); %Neutrophils 74.3 % (42.0-75.0); Hemoglobin 10.3 g/dL (12.0-16.0); Mean Corpuscular HGB CONC 31.1 g/dL (32.0-36.0); Mean Corpuscular Hemoglobin 29.7 pg (27.0-31.0); Mean Corpuscular Volume 95.4 fL (78.0-98.0); Mean Platelet Volume 8.4 fL (7.4-10.4); Platelet Count 237 thou/uL (130-400); RBC Distribution Width 23.8 % (11.5-14.5); Red Blood Cell (RBC) Count 3.47 mill/uL (4.20-5.40); White Blood Cell (WBC) Count 7.5 thou/uL (4.8-10.8)
[2021-11-05] MEDS: Levothyroxine Sodium 75 MCG TAB PO SCH (05:22)
[2021-11-05 05:24] LABS: ALT (SGPT) 10 U/L (8-55); AST (SGOT) 21 U/L (5-34); Albumin 2.9 g/dL (3.4-4.8); Alkaline Phosphatase 87 U/L (40-110); Anion Gap 12 mmol/L (10-20); BUN (Urea Nitrogen) 15 mg/dL (9.8-20.1); Bilirubin, Total 0.3 mg/dL (0.2-1.2); Calc. Creatinine Clearance 61 mL/min (70-130); Calcium 8.6 mg/dL (7.8-10.44); Carbon Dioxide 28 mmol/L (23-31); Chloride 102 mmol/L (98-107); Globulin 2.6 g/dL (2.4-3.5); Glucose 88 mg/dL (83-110); Potassium 3.8 mmol/L (3.5-5.1); Protein, Total 5.5 g/dL (5.8-8.1); Sodium 138 mmol/L (136-145)
[2021-11-05] MEDS: Gabapentin 300 MG CAP PO SCH ×2 (08:21→20:25)
[2021-11-05] MEDS: hydrALAZINE 25 MG TAB PO SCH (08:21)
[2021-11-05] MEDS: Cholecalciferol 1,000 UNITS (25 MCG) TAB PO SCH (08:22)
[2021-11-05] MEDS: Saccharomyces boulardii 250 MG CAP PO SCH (08:22)
[2021-11-05] MEDS: Furosemide 20 MG TAB PO SCH (08:22)
[2021-11-05] MEDS: Docusate 100 MG CAP PO SCH (08:23)
[2021-11-05] MEDS: Aspirin 81 mg Enteric Coated Tablet PO SCH ×2 (08:24→20:26)
[2021-11-05] MEDS: Ferrous Sulfate 325 MG TAB PO SCH (08:24)
[2021-11-05] MEDS: Polyethylene Glycol 3350 17 GM Packet PO SCH (08:24)
[2021-11-05] MEDS: Enoxaparin Sodium 30 MG/0.3 ML SYRINGE SC SCH (08:24)
[2021-11-05] MEDS: Senokot 8.6 MG TAB PO SCH ×2 (08:25→20:25)
[2021-11-05] MEDS ORDERED: Lansoprazole 3 MG/ML ORAL SUSPENSION PO SCH (09:00)
[2021-11-05] MEDS ORDERED: cloNIDine 0.1 MG TAB PO PRN (09:31)
[2021-11-05] MEDS: HYDROcodone/Acetaminophen 10/325 mg Tablet PO PRN (10:47)
[2021-11-05] MEDS: Citalopram 20 MG TAB PO SCH (20:26)
[2021-11-06] MEDS: traMADol HCl 50 MG TAB PO SCH ×3 (00:05→11:34)
[2021-11-06] MEDS: Levothyroxine Sodium 75 MCG TAB PO SCH (05:18)
[2021-11-06] MEDS: Aspirin 81 mg Enteric Coated Tablet PO SCH (08:17)
[2021-11-06] MEDS: Senokot 8.6 MG TAB PO SCH (08:17)
[2021-11-06] MEDS: Polyethylene Glycol 3350 17 GM Packet PO SCH (08:17)
[2021-11-06] MEDS: Ferrous Sulfate 325 MG TAB PO SCH (08:17)
[2021-11-06] MEDS: Cholecalciferol 1,000 UNITS (25 MCG) TAB PO SCH (08:19)
[2021-11-06] MEDS: Furosemide 20 MG TAB PO SCH (08:19)
[2021-11-06] MEDS: Enoxaparin Sodium 30 MG/0.3 ML SYRINGE SC SCH (08:23)
[2021-11-06] MEDS: Gabapentin 300 MG CAP PO SCH (08:23)
[2021-11-06] MEDS: HYDROcodone/Acetaminophen 10/325 mg Tablet PO PRN (08:24)
[2021-11-06 11:30] VITALS: BP 125/74; TEMP 97.5
[2021-11-06] MEDS: Saccharomyces boulardii 250 MG CAP PO SCH (11:34)
== END 2021-11-06 13:25 | DRG 481 ==
LOC: SDC 10:40 → SJJU 16:37
PROVIDERS: ADMIT Orthopaedic Surgery; ATTEND Orthopaedic Surgery
PROC: 0QS704Z Reposition Left Upper Femur with Internal Fixation Device, Open Approach (ICD-10-PCS; principal; 2021-11-04)
DX: S72.142A Displaced intertrochanteric fracture of left femur, initial encounter for closed fracture (principal); I48.20 Chronic atrial fibrillation, unspecified; E03.9 Hypothyroidism, unspecified; Z20.822 Contact with and (suspected) exposure to COVID-19; F41.9 Anxiety disorder, unspecified; M79.7 Fibromyalgia; K27.9 Peptic ulcer, site unspecified, unspecified as acute or chronic, without hemorrhage or perforation; W19.XXXA Unspecified fall, initial encounter; I12.9 Hypertensive chronic kidney disease with stage 1 through stage 4 chronic kidney disease, or unspecified chronic kidney disease; N18.2 Chronic kidney disease, stage 2 (mild); E66.9 Obesity, unspecified; M54.9 Dorsalgia, unspecified; G89.29 Other chronic pain; Z79.899 Other long term (current) drug therapy; Z68.30 Body mass index [BMI] 30.0-30.9, adult; Z98.51 Tubal ligation status; Z90.49 Acquired absence of other specified parts of digestive tract
CPT/HCPCS: 36415; 76000; 80048; 80053; 83735; 85025; 85027; 85610; 93005; 93010; C1713; J0171; J0690; J1650; J1885; J2405; J2704; J2765; J3010; J3490; S0020

== ENCOUNTER 2023-03-29 23:34 | Observation (INO) | payer MEDICARE ==
[2023-03-30 03:10] VITALS: BMI 27.8
[2023-03-30] MEDS ORDERED: Ondansetron PF 4 MG/2 ML Vial IVP PRN (03:24)
[2023-03-30] MEDS ORDERED: Acetaminophen 325 MG TAB PO PRN (03:24)
[2023-03-30] MEDS ORDERED: Polyethylene Glycol 3350 17 GM Packet PO PRN (04:19)
[2023-03-30] MEDS: Levothyroxine Sodium 75 MCG TAB PO SCH (05:50)
[2023-03-30 05:52] LABS: #Basophils 0.1 thou/uL (0.0-0.2); #Eosinphils 0.3 thou/uL (0.0-0.7); #Monocytes 0.6 thou/uL (0.11-0.59); #Neutrophils 3.9 thou/uL (1.40-6.50); %Basophils 0.9 % (0.0-1.0); %Eosinophils 4.4 % (0.0-10.0); %Lymphocytes 23.1 % (21.0-51.0); %Monocytes 9.5 % (0.0-10.0); %Neutrophils 61.8 % (42.0-75.0); Hemoglobin 10.8 g/dL (12.0-16.0); Mean Corpuscular HGB CONC 31.9 g/dL (32.0-36.0); Mean Corpuscular Hemoglobin 29.7 pg (27.0-31.0); Mean Corpuscular Volume 93.1 fl (78.0-98.0); Mean Platelet Volume 10.4 fL (7.4-10.4); Platelet Count 225 10x3/uL (130-400); RBC Distribution Width 13.5 % (11.5-14.5); Red Blood Cell (RBC) Count 3.64 mill/uL (4.20-5.40); White Blood Cell (WBC) Count 6.3 10x3/uL (4.8-10.8)
[2023-03-30 05:56] LABS: Hemoglobin A1c 4.9 % (4.0-6.0)
[2023-03-30 06:13] LABS: Anion Gap 8 mmol/L (10-20); BUN (Urea Nitrogen) 27 mg/dL (9.8-20.1); Calc. Creatinine Clearance 51 mL/min (70-130); Calcium 9.4 mg/dL (7.8-10.44); Carbon Dioxide 29 mmol/L (23-31); Cardiac Risk 3.3 (Less than 4.5); Chloride 109 mmol/L (98-107); Cholesterol 200 mg/dl (< 200 Desired); Estimated GFR 66; Glucose 99 mg/dL (83-110); HDL Cholesterol 61 mg/dL (>60 Neg Risk); LDL Cholesterol, Calculated 130 mg/dL; Potassium 4.1 mmol/L (3.5-5.1); Sodium 142 mmol/L (136-145); Triglycerides 45 mg/dL (Less than 150)
[2023-03-30] MEDS: Aspirin 81 mg Enteric Coated Tablet PO SCH (08:46)
[2023-03-30] MEDS: Cholecalciferol 1,000 UNITS (25 MCG) TAB PO SCH (08:46)
[2023-03-30] MEDS: hydrALAZINE 25 MG TAB PO SCH (11:08)
[2023-03-31 05:38] LABS: #Basophils 0.1 thou/uL (0.0-0.2); #Eosinphils 0.3 thou/uL (0.0-0.7); #Monocytes 0.6 thou/uL (0.11-0.59); #Neutrophils 3.9 thou/uL (1.40-6.50); %Basophils 0.8 % (0.0-1.0); %Eosinophils 4.8 % (0.0-10.0); %Lymphocytes 21.8 % (21.0-51.0); %Monocytes 10.3 % (0.0-10.0); %Neutrophils 62.1 % (42.0-75.0); Hemoglobin 10.7 g/dL (12.0-16.0); Mean Corpuscular HGB CONC 31.5 g/dL (32.0-36.0); Mean Corpuscular Hemoglobin 29.5 pg (27.0-31.0); Mean Corpuscular Volume 93.7 fl (78.0-98.0); Mean Platelet Volume 9.9 fL (7.4-10.4); Platelet Count 225 10x3/uL (130-400); RBC Distribution Width 13.6 % (11.5-14.5); Red Blood Cell (RBC) Count 3.63 mill/uL (4.20-5.40); White Blood Cell (WBC) Count 6.2 10x3/uL (4.8-10.8)
[2023-03-31 05:58] LABS: Anion Gap 12 mmol/L (10-20); BUN (Urea Nitrogen) 25 mg/dL (9.8-20.1); Calc. Creatinine Clearance 50 mL/min (70-130); Carbon Dioxide 27 mmol/L (23-31); Chloride 107 mmol/L (98-107); Estimated GFR 65; Glucose 98 mg/dL (83-110); Potassium 4.2 mmol/L (3.5-5.1); Sodium 142 mmol/L (136-145)
[2023-03-31] MEDS: Levothyroxine Sodium 75 MCG TAB PO SCH (06:28)
[2023-03-31] MEDS: hydrALAZINE 25 MG TAB PO SCH (08:32)
[2023-03-31] MEDS: Aspirin 81 mg Enteric Coated Tablet PO SCH (08:33)
[2023-03-31] MEDS: Cholecalciferol 1,000 UNITS (25 MCG) TAB PO SCH (08:33)
[2023-03-31 11:59] VITALS: TEMP 99.1
[2023-03-31 13:46] VITALS: BP 135/83
[2023-04-03] MEDS ORDERED: Levothyroxine Sodium 75 MCG TAB PO SCH (06:00)
== END 2023-03-31 13:45 | disposition home or self-care (01) ==
LOC: 2SE 23:34
PROVIDERS: ADMIT Internal Medicine; ATTEND Internal Medicine
DX: R42 Dizziness and giddiness (principal); I48.91 Unspecified atrial fibrillation; E78.5 Hyperlipidemia, unspecified; F41.9 Anxiety disorder, unspecified; G25.81 Restless legs syndrome; I50.9 Heart failure, unspecified; K57.90 Diverticulosis of intestine, part unspecified, without perforation or abscess without bleeding; R53.81 Other malaise; D64.9 Anemia, unspecified; K21.9 Gastro-esophageal reflux disease without esophagitis; I48.20 Chronic atrial fibrillation, unspecified; F41.8 Other specified anxiety disorders; I11.0 Hypertensive heart disease with heart failure; M79.7 Fibromyalgia; K29.50 Unspecified chronic gastritis without bleeding; N17.9 Acute kidney failure, unspecified; E03.9 Hypothyroidism, unspecified; Z79.890 Hormone replacement therapy; Z79.899 Other long term (current) drug therapy; Z79.82 Long term (current) use of aspirin; Z90.89 Acquired absence of other organs; Z98.51 Tubal ligation status; Z98.890 Other specified postprocedural states
CPT/HCPCS: 70551; 80048 ×2; 80061; 83036; 84439; 84443; 85025 ×2; 93306; 93880; 97116 ×2; 97530; G0378 ×2; 36415